=== PATIENT | male | born 2005 | race Caucasian/White ===

== ENCOUNTER 2024-02-28 16:54 | Emergency (ER) | payer OTHER, MEDICAID ==
[~2024-02-28] VITALS: Ht 175.3 cm; Wt 74.4 kg
[2024-02-28 17:14] VITALS: BP 121/67; PULSE 83; RESP 17; TEMP 98.4; O2SAT 99
[2024-02-28 18:06] LABS: BASOPHILS % (AUTO) 0.2 % (0.0-2.0); HEMATOCRIT 43.4 % (36-52); HEMOGLOBIN 14.7 g/dL (12.0-18.0); LYMPHOCYTES # (AUTO) 0.9 K/uL (2.0-11.5); LYMPHOCYTES % (AUTO) 6.1 % (20.5-51.1); MEAN CORPUSCULAR HEMOGLOBIN 30 pg (27-31); MEAN CORPUSCULAR HGB CONC 34 g/dL (33-37); MEAN CORPUSCULAR VOLUME 88.3 fL (80-94); MONOCYTES # (AUTO) 0.2 K/uL (0.8-1.0); MONOCYTES % (AUTO) 1.4 % (1.7-9.3); NEUTROPHILS # (AUTO) 14.2 K/uL (1.8-7.7); NEUTROPHILS % (AUTO) 92.3 % (42.2-75.2); PLATELET COUNT (AUTO) 368 K/uL (140-450); RED BLOOD CELL COUNT(AUTO) 4.91 MIL/uL (4.20-6.10); RED CELL DISTRIBUTION WIDTH 13.2 % (11.6-13.7); WHITE BLOOD COUNT (AUTO) 15.4 K/uL (4.5-11.0)
[2024-02-28 18:20] LABS: ANION GAP 16.6 (8-16); CALCIUM 10.5 mg/dL (8.5-10.1); CARBON DIOXIDE 25.5 mmol/L (21-32); POTASSIUM 4.1 mmol/L (3.5-5.1); TOTAL BILIRUBIN 0.9 mg/dL (0.0-1.0); TOTAL PROTEIN, SERUM 8.5 g/dL (6.4-8.2)
[2024-02-28] MEDS: ONDANSETRON 4 MG ODT PO ONE (18:47)
[2024-02-28] MEDS: ALUMINUM HYD/MAG/SIMETHICONE 30 ML UDC PO ONE (19:10)
[2024-02-28] MEDS: FAMOTIDINE 20 MG TAB PO ONE (19:10)
[2024-02-28] MEDS: NACL 0.9% 1,000 ML IV ONE (19:39)
[2024-02-28] MEDS: METOCLOPRAMIDE 10 MG/2 ML INJ VIAL IVP ONE (19:42)
[2024-02-28] MEDS: KETOROLAC 30 MG/ML VIAL IVP ONE (19:42)
[2024-02-28] MEDS ORDERED: ONDA-188 SL (20:22)
[2024-02-28] MEDS ORDERED: FAMO-90 PO (20:22)
[2024-02-28 20:45] VITALS: BP 128/76; PULSE 67; RESP 17; TEMP 98; O2SAT 100
== END 2024-02-28 20:45 | disposition home or self-care (01) ==
LOC: MED 16:54
DX: K29.70 Gastritis, unspecified, without bleeding (principal); A08.4 Viral intestinal infection, unspecified; J45.909 Unspecified asthma, uncomplicated; Z79.1 Long term (current) use of non-steroidal anti-inflammatories (NSAID); Z79.899 Other long term (current) drug therapy
CPT/HCPCS: 36415; 74177; 80053; 83690; 85025; 96361; 96374; 96375; 99285; J1885; J2765; J7030; Q0162; Q9967

== ENCOUNTER 2024-03-01 13:24 | Emergency (ER) | payer OTHER, MEDICAID ==
[~2024-03-01] VITALS: Ht 175.3 cm; Wt 67.2 kg
[~2024-03-01 13:24] MED LIST: FAMO-90 PO; ONDA-188 SL
[2024-03-01 14:02] VITALS: BP 113/63; PULSE 54; RESP 18; TEMP 97.8; O2SAT 100
[2024-03-01 15:16] LABS: BASOPHILS % (AUTO) 0.3 % (0.0-2.0); EOSINOPHILS % (AUTO) 0.1 % (0.0-4.0); HEMATOCRIT 40.6 % (36-52); HEMOGLOBIN 13.8 g/dL (12.0-18.0); LYMPHOCYTES # (AUTO) 1.1 K/uL (2.0-11.5); LYMPHOCYTES % (AUTO) 12.1 % (20.5-51.1); MEAN CORPUSCULAR HEMOGLOBIN 30 pg (27-31); MEAN CORPUSCULAR HGB CONC 34 g/dL (33-37); MEAN CORPUSCULAR VOLUME 88.6 fL (80-94); MONOCYTES # (AUTO) 0.2 K/uL (0.8-1.0); MONOCYTES % (AUTO) 2.2 % (1.7-9.3); NEUTROPHILS # (AUTO) 7.7 K/uL (1.8-7.7); NEUTROPHILS % (AUTO) 85.3 % (42.2-75.2); PLATELET COUNT (AUTO) 312 K/uL (140-450); RED BLOOD CELL COUNT(AUTO) 4.58 MIL/uL (4.20-6.10); RED CELL DISTRIBUTION WIDTH 13.1 % (11.6-13.7)
[2024-03-01 15:39] LABS: ANION GAP 11.3 (8-16); CALCIUM 9.7 mg/dL (8.5-10.1); CARBON DIOXIDE 28.4 mmol/L (21-32); CREATININE 0.9 mg/dL (0.6-1.3); POTASSIUM 3.7 mmol/L (3.5-5.1)
[2024-03-01] MEDS: NACL 0.9% 1,000 ML IV ONE (15:56)
[2024-03-01] MEDS: METOCLOPRAMIDE 10 MG/2 ML INJ VIAL IVP ONE (16:00)
[2024-03-01] MEDS: diphenhydrAMINE 50 MG/ML VIAL IVP ONE (16:00)
[2024-03-01] MEDS: FAMOTIDINE 20 MG/2 ML VIAL IVP ONE (16:00)
[2024-03-01 16:04] LABS: ALBUMIN 4.6 g/dL (3.4-5.0); BILIRUBIN,DIRECT 0.2 mg/dL (0.0-0.3); TOTAL BILIRUBIN 1.1 mg/dL (0.0-1.0); TOTAL PROTEIN, SERUM 7.6 g/dL (6.4-8.2)
[2024-03-01] MEDS ORDERED: METO-485 PO (16:44)
[2024-03-01 18:52] VITALS: BP 121/64; PULSE 60; RESP 16; TEMP 98.1; O2SAT 100
== END 2024-03-01 18:52 | disposition home or self-care (01) ==
LOC: MED 13:24
DX: R11.2 Nausea with vomiting, unspecified (principal); R10.9 Unspecified abdominal pain; J45.909 Unspecified asthma, uncomplicated; Z79.1 Long term (current) use of non-steroidal anti-inflammatories (NSAID); Z79.899 Other long term (current) drug therapy
CPT/HCPCS: 36415; 80048; 80076; 83690; 85025; 96361; 96374; 96375; 99284; J1200; J2765; J3490